=== PATIENT | male | born 1965 | race Caucasian/White ===

== ENCOUNTER 2020-10-08 15:15 | Inpatient (IN) | payer OTHER ==
[2020-10-08] VITALS (27 sets, daily range): BP systolic 66–109; BP diastolic 39–82; BMI 30.1
[~2020-10-08] VITALS: Ht 177.8 cm; Wt 98.5 kg
[2020-10-08] MEDS ORDERED: VITAMIN D-32000 UNIT PO (15:23)
[2020-10-08] MEDS ORDERED: LIPITOR80 MG PO (15:23)
[2020-10-08] MEDS ORDERED: NORVASC5 MG PO (15:23)
[2020-10-08] MEDS ORDERED: VYVANSE40 MG PO (15:23)
[2020-10-08] MEDS ORDERED: PLAVIX75 MG PO (15:24)
[2020-10-08] MEDS ORDERED: METOPROLOL TART50 MG PO (15:24)
[2020-10-08] MEDS ORDERED: BAYER CHEWABLE81 MG PO (15:24)
--- NOTE | 2020-10-08 15:33 | NUR ---
NOREPINEPHERINE STARTED @ 10MCG/MIN.
--- NOTE | 2020-10-08 15:40 | NUR ---
BLOOD TRANFUSION STARTED AT THIS TIME. VITAL SIGNS IN FLOW SHEET.
--- NOTE | 2020-10-08 15:49 | NUR ---
PT COMPLETED 1 UNIT OF PRBCS PRIOR TO ARRIVAL.
--- NOTE | 2020-10-08 15:49 | NUR ---
PT ARRIVES AT ER WITH 2 PATENT IV'S. 18G R AC AND 20G R HAND.
--- NOTE | 2020-10-08 15:51 | NUR ---
LEVOPHED INCREASED TO 14MCG/MIN.
[2020-10-08 15:53] LABS: BASOPHILS 0.5 % (0-2); EOSINOPHILS 0.1 % (0-7); HEMATOCRIT 29.1 % (42.0-54.0); HEMOGLOBIN 9.9 g/dL (13.5-17.5); IMMATURE GRANULOCYTES 0.3 % (0-5); LYMPHOCYTE ABS# 4.13 10x3/uL (1.32-3.57); LYMPHOCYTES 22.4 % (15-50); MCH 31.4 pg (26.0-34.0); MCV 92.4 fL (80.0-100.0); MEAN PLATELET VOLUME 10.9 fL (7.4-10.4); MONOCYTES 6.8 % (2-11); NEUTROPHIL ABS# 12.88 10x3/uL (1.78-5.38); NEUTROPHILS 69.9 % (40-80); PLATELET COUNT 240 10x3/uL (130-400); RBC 3.15 10x6/uL (4.20-6.10); RDW 13.1 % (11.5-14.5); WBC 18.4 10x3/uL (4.8-10.8)
[2020-10-08 15:57] LABS: INR 1.26 (0.85-1.17); PROTIME 14.6 SECONDS (11.6-15.0)
[2020-10-08 16:10] LABS: ALBUMIN 2.9 g/dL (3.4-5.0); ANION GAP 18.3 mmol/L (8-16); BILIRUBIN - TOTAL 0.32 mg/dL (0.2-1.3); CALCIUM 8.1 mg/dL (8.5-10.1); CARBON DIOXIDE 19.7 mmol/L (21.0-32.0); CREATININE - SERUM 2.9 mg/dL (0.6-1.3); PROTEIN - SERUM 5.5 g/dL (6.4-8.2)
--- NOTE | 2020-10-08 17:18 | NUR ---
1700 CLIPS X2 EPINEPHERINE TO BLEEDER SITS X2CC.
--- NOTE | 2020-10-08 17:35 | NUR ---
1720-REC'D PT TO ICU, HR-117, 99/72. DR COLLINS AT BS.
[2020-10-08 19:19] LABS: BASOPHILS 0.4 % (0-2); EOSINOPHILS 0 % (0-7); HEMATOCRIT 28.6 % (42.0-54.0); HEMOGLOBIN 10.1 g/dL (13.5-17.5); IMMATURE GRANULOCYTES 0.6 % (0-5); LYMPHOCYTE ABS# 2.05 10x3/uL (1.32-3.57); LYMPHOCYTES 10.1 % (15-50); MCHC 35.3 g/dL (31.0-37.0); MCV 90.5 fL (80.0-100.0); MONOCYTES 4.3 % (2-11); NEUTROPHIL ABS# 17.09 10x3/uL (1.78-5.38); NEUTROPHILS 84.6 % (40-80); PLATELET COUNT 192 10x3/uL (130-400); RBC 3.16 10x6/uL (4.20-6.10); RDW 12.9 % (11.5-14.5); WBC 20.2 10x3/uL (4.8-10.8)
--- NOTE | 2020-10-08 19:39 | NUR ---
PT A&O X4. PT REFUSED CATHETER INSERTION MULTIPLE TIMES. HE WAS ABLE TO USE URINAL WITH MORNING NURSE. THIS NURSE WITNESSED THE CATHETER INSERTION REFUSAL. RECVD REPORT FROM ONGOING NURSE. PT NOW IS IN BED WITH EYES CLOSED. VSS. H&H DRAWN
[2020-10-08 22:34] LABS: HEMATOCRIT 30.9 % (42.0-54.0); HEMOGLOBIN 10.2 g/dL (13.5-17.5); LYMPHOCYTE ABS# 2.87 10x3/uL (1.32-3.57); MCH 31.7 pg (26.0-34.0); MEAN PLATELET VOLUME 11.1 fL (7.4-10.4); NEUTROPHIL ABS# 19.36 10x3/uL (1.78-5.38); PLATELET COUNT 207 10x3/uL (130-400); RBC 3.22 10x6/uL (4.20-6.10); RDW 13.5 % (11.5-14.5); WBC 23.2 10x3/uL (4.8-10.8)
[2020-10-08 23:16] LABS: LYMPHOCYTES 15 % (15-50); MONOCYTES 5 % (2-11); NEUTROPHILS 77 % (40-80); PLATELET ESTIMATE NORMAL
[2020-10-08 23:17] LABS: PLATELET MORPHOLOGY PLT CLUMPS PRESENT
[2020-10-09] VITALS (54 sets, daily range): BP systolic 80–121; BP diastolic 24–87
[2020-10-09 01:35] LABS: HEMATOCRIT 27.4 % (42.0-54.0); HEMOGLOBIN 9.4 g/dL (13.5-17.5)
[2020-10-09 08:05] LABS: BASOPHILS 0.2 % (0-2); EOSINOPHILS 0.1 % (0-7); HEMATOCRIT 24.3 % (42.0-54.0); HEMOGLOBIN 8.4 g/dL (13.5-17.5); IMMATURE GRANULOCYTES 0.2 % (0-5); LYMPHOCYTE ABS# 2.76 10x3/uL (1.32-3.57); LYMPHOCYTES 16.8 % (15-50); MCH 31.1 pg (26.0-34.0); MCHC 34.6 g/dL (31.0-37.0); MEAN PLATELET VOLUME 10.7 fL (7.4-10.4); MONOCYTES 6.9 % (2-11); NEUTROPHIL ABS# 12.48 10x3/uL (1.78-5.38); NEUTROPHILS 75.8 % (40-80); PLATELET COUNT 196 10x3/uL (130-400); RDW 13.3 % (11.5-14.5)
[2020-10-09 08:10] LABS: WBC 16.5 10x3/uL (4.8-10.8)
[2020-10-09 08:11] LABS: BILIRUBIN - TOTAL 0.54 mg/dL (0.2-1.3); CALCIUM 7.4 mg/dL (8.5-10.1); CARBON DIOXIDE 18.8 mmol/L (21.0-32.0); MAGNESIUM - SERUM 1.6 mg/dL (1.8-2.4); POTASSIUM - SERUM 3.8 mmol/L (3.5-5.1); PROTEIN - SERUM 5.1 g/dL (6.4-8.2); VANCOMYCIN - RANDOM 7.1 ug/mL (10.0-20.0)
[2020-10-09 08:12] LABS: CREATININE - SERUM 1.7 mg/dL (0.6-1.3)
[2020-10-09 14:01] LABS: HEMATOCRIT 22.1 % (42.0-54.0); HEMOGLOBIN 7.6 g/dL (13.5-17.5)
--- NOTE | 2020-10-09 15:29 | NUR ---
REPORTED LABS TO DR PHOENIX. [facility]
--- NOTE | 2020-10-09 16:24 | NUR ---
POST VOID BLADDER SCANNED IS ZERO. WILL NOT PLACE GODOY CATH. PT IS REFUSING GODOY WELL.
[2020-10-10] VITALS (16 sets, daily range): BP systolic 85–126; BP diastolic 40–77; Ht 177.8 cm; Wt 98.5 kg
[2020-10-10 00:30] LABS: HEMATOCRIT 25.3 % (42.0-54.0); HEMOGLOBIN 8.8 g/dL (13.5-17.5)
[2020-10-10 03:36] LABS: BASOPHILS 0.6 % (0-2); EOSINOPHILS 1.2 % (0-7); HEMATOCRIT 25.1 % (42.0-54.0); HEMOGLOBIN 8.7 g/dL (13.5-17.5); IMMATURE GRANULOCYTES 0.2 % (0-5); LYMPHOCYTES 34.5 % (15-50); MCH 30.9 pg (26.0-34.0); MCHC 34.7 g/dL (31.0-37.0); MEAN PLATELET VOLUME 10.6 fL (7.4-10.4); MONOCYTES 7.9 % (2-11); NEUTROPHIL ABS# 4.99 10x3/uL (1.78-5.38); NEUTROPHILS 55.6 % (40-80); RBC 2.82 10x6/uL (4.20-6.10); RDW 14.2 % (11.5-14.5)
[2020-10-10 03:47] LABS: PLATELET COUNT 152 10x3/uL (130-400)
[2020-10-10 03:57] LABS: ALBUMIN 2.9 g/dL (3.4-5.0); ANION GAP 7.5 mmol/L (8-16); BILIRUBIN - TOTAL 1.19 mg/dL (0.2-1.3); MAGNESIUM - SERUM 1.7 mg/dL (1.8-2.4); POTASSIUM - SERUM 3.9 mmol/L (3.5-5.1); PROTEIN - SERUM 5.2 g/dL (6.4-8.2)
[2020-10-10 04:04] LABS: CARBON DIOXIDE 26.4 mmol/L (21.0-32.0); CREATININE - SERUM 1.2 mg/dL (0.6-1.3)
--- NOTE | 2020-10-10 07:15 | NUR ---
REPORT RECEIVED. ASSESSMENT COMPLETE PER FLOW SHEET. VSS. PT RESTING COMFORTABLY. DENIES NEEDS
[2020-10-11 04:00] VITALS: BP 92/42
[2020-10-11 07:34] LABS: ALBUMIN 2.8 g/dL (3.4-5.0); ALKALINE PHOSPHATASE 47 U/L (30-120); ALT (SGPT) 22 U/L (10-68); BILIRUBIN - TOTAL 0.76 mg/dL (0.2-1.3); CALC OSMOLALITY 281 mosm/kg (275-300); CALCIUM 8.3 mg/dL (8.5-10.1); CARBON DIOXIDE 30.8 mmol/L (21.0-32.0); CHLORIDE - SERUM 108 mmol/L (98-107); GLUCOSE 106 mg/dL (74-106); POTASSIUM - SERUM 3.8 mmol/L (3.5-5.1); PROTEIN - SERUM 5.4 g/dL (6.4-8.2); SODIUM 140 mmol/L (136-145); UREA NITROGEN 22 mg/dL (7-18); VANCOMYCIN - TROUGH 10.8 ug/mL (10.0-20.0); eGFR NON AFRICAN AMERICAN 83 mL/min (90-120)
[2020-10-11 07:41] LABS: BASOPHILS 1.2 % (0-2); EOSINOPHILS 4.4 % (0-7); HEMATOCRIT 25.6 % (42.0-54.0); HEMOGLOBIN 8.7 g/dL (13.5-17.5); LYMPHOCYTE ABS# 2.65 10x3/uL (1.32-3.57); LYMPHOCYTES 39.9 % (15-50); MCH 30.7 pg (26.0-34.0); MCV 90.5 fL (80.0-100.0); MEAN PLATELET VOLUME 10.5 fL (7.4-10.4); MONOCYTES 8.1 % (2-11); NEUTROPHIL ABS# 3.08 10x3/uL (1.78-5.38); NEUTROPHILS 46.4 % (40-80); PLATELET COUNT 169 10x3/uL (130-400); RBC 2.83 10x6/uL (4.20-6.10); RDW 13.6 % (11.5-14.5)
[2020-10-11 07:47] LABS: WBC 6.6 10x3/uL (4.8-10.8)
[2020-10-11 08:26] VITALS: BP 102/57
[2020-10-11 12:43] VITALS: BP 100/47
[2020-10-11] MEDS ORDERED: PROTONIX40 MG PO (14:51)
[2020-10-11] MEDS ORDERED: CARAFATE1 G PO (14:55)
--- NOTE | 2020-10-13 12:02 | MORECARE ---
CASE MANAGEMENT DISCHARGE SUMMARY PATIENT: CARLOS ADAMS UNIT: [id number] ADM DATE: 10/08/20 AGE: 54 : 65 SEX: M ROOM/BED: D.2239 AUTHOR: WONDOC PHYSICIAN: REFERRING PHYSICIAN: AISSATOU COLLINS MD DATE OF SERVICE: 10/13/20 Case Management Discharge Planning Summary DCP REVIEW SUMMARY ANTICIPATED D/C DATE: EXPECTED LOS : CASE STATUS: DCP Initiated INITIAL REVIEW: 10/11/2020 INITIAL REVIEWER: Marcie Parry FINAL DISCHARGE DISPOSITION: : FINAL REVIEWER: FINAL REVIEW DATE: LACE: UPDATED BY: [email or web address]: Marcie Parry on 10/11/20 13:14 CT QUESTION: ANSWER Length of Stay (Prior Admit): None Acute Admission: Inpatient Comorbidity: (1PT) DM no complications, Cerebrovascular Disease, Hx of MS, PVD, PUD Comorbidity Total Score 1 PT Emergency Room visits during previous 6 months: 0 Visits DCP Focus Questions & Answers DCP REV -DCP Review Added on: 10/11/20 1:18 pm QUESTION: ANSWER DCP Screen High Risk Factors: : None Walking limitation: Patient stated self rated walking limitation present? : No Age: : 45 - 64 Prior living environment: : Lives with others Disability ranking: : Grade 1: No significant disability DCP Evaluation Patient's ability to cope with chronic illness : d. No chronic illness Mental health screen: : No mental health history Would patient like to participate in any Care Coordination programs (if applicable): : Not applicable Patient's current cognitive status: : *Oriented to person, place, situation, time and present Patient's current cognitive status: : Alert Functional screen assessment: : No issues identified Patient with capacity for self-care or can be cared for in same environment as prior to hospitalization? : Yes DCP Re-evaluation Would patient like to participate in any Care Coordination programs (if applicable): : Not applicable PATIENT: CARLOS ADAMS ENCOUNTER: [id number] MEDICAL RECORD#: [id number] ADMISSION DATE: 10/08/2020 DISCHARGE DATE: 10/11/2020 ATTENDING MD: AISSATOU ARAUJO : AGE: 54 MARITAL STATUS: D DC PLAN ID: [id number] FACILITY: [facility] PRINTED ON: 10/13/20 12:01 CT All edits/amendments must be made on the electronic document DICTATION DATE: 10/13/20 120 PM HEAD COOK: ROXANNA 10/13/20 120 RPT#: [id number] DC DATE:10/11/20 STATUS: DIS IN [facility] [address] [place] [address] END OF REPORT
== END 2020-10-11 18:33 | disposition home or self-care (01) | DRG 871 ==
LOC: D.ER 15:15 → D.MS 16:27 → D.EDHOLD 16:27 → D.ICU 16:27 → D.MS 10-10 15:54
PROVIDERS: Family Medicine; Internal Medicine Gastroenterology; ADMIT Family Medicine; ATTEND Family Medicine
PROC: 0W3P8ZZ Control Bleeding in Gastrointestinal Tract, Via Natural or Artificial Opening Endoscopic (ICD-10-PCS; principal; 2020-10-08 16:00)
DX: A41.9 Sepsis, unspecified organism (principal); K25.4 Chronic or unspecified gastric ulcer with hemorrhage; R57.8 Other shock; D62 Acute posthemorrhagic anemia; N17.9 Acute kidney failure, unspecified; K92.1 Melena; I10 Essential (primary) hypertension; I25.10 Atherosclerotic heart disease of native coronary artery without angina pectoris; E78.5 Hyperlipidemia, unspecified; D72.829 Elevated white blood cell count, unspecified; Z72.0 Tobacco use; E88.09 Other disorders of plasma-protein metabolism, not elsewhere classified; I95.9 Hypotension, unspecified